=== PATIENT | male | born 1985 | race Caucasian/White ===

== ENCOUNTER 2017-03-13 03:48 | Emergency (ER) | payer OTHER ==
[~2017-03-13] VITALS: Ht 182.9 cm; Wt 86.0 kg
[~2017-03-13 03:48] MED LIST: CYCL-319 PO; HYDR-3498 PO; IBUP800T25 PO
[2017-03-13 03:49] VITALS: Ht 182.9 cm; Wt 86.0 kg
--- NOTE | 2017-03-13 05:07 | ERD ---
ER Documentation Chief Complaint Date/Time DATE: 03/13/17 TIME: 05:03 Chief Complaint rashes on face and both arms HPI This 31-year-old male patient presents to emergency department for complaints of bug bites on his face. Patient reports that he has just moved into a new trailer, he is lethargic, nodding off, and admits to heroin use yesterday. ROS All systems reviewed and are negative except as per history of present illness. Medications Home Meds Active Scripts Mupirocin* (Bactroban*) 2% -22 Gram Oint...g., 1 APPLIC TOP BID for 7 Days, EA Prov:SID,MELODY 03/13/17 Ibuprofen* (Ibuprofen*) 800 Mg Tab, 800 MG PO Q6H Y for PAIN, #30 TAB Prov:ALYSON MARTIN PA-C 03/09/15 Hydrocodone Bit-Acetaminophen* (Hiland*) 5-325 Mg Tab, 1 TAB PO Q4H Y for PAIN, # 20 TAB Prov:ALYSON MARTIN PA-C 03/09/15 Hydrocodone Bit-Acetaminophen* (Hiland*) 5-325 Mg Tab, 1 TAB PO Q6 Y for PAIN, # 10 TAB Prov:CHUCK RUIZ NP 01/11/15 Ibuprofen* (Motrin*) 800 Mg Tab, 800 MG PO Q6H Y for PAIN AND OR ELEVATED TEMP, #30 TAB Prov:CHUCK RUIZ NP 01/11/15 Cyclobenzaprine Hcl* (Cyclobenzaprine Hcl*) 10 Mg Tablet, 5 MG PO TID, #30 TAB Prov:CHUCK RUIZ NP 01/11/15 Allergies Allergies: Coded Allergies: tramadol (Verified Allergy, Unknown, seizure, 01/11/15) PMhx/Soc Medical and Surgical Hx: pt denies Surgical Hx Hx Alcohol Use: No Hx Substance Use: Yes (heroin, last use 03/12/17.) Hx Tobacco Use: Yes Smoking Status: Never smoker Physical Exam Vitals Vital Signs Date Time Temp Pulse Resp B/P Pulse Ox O2 Delivery O2 Flow Rate FiO2 03/13/17 03:49 97.8 80 20 121/78 98 Vitals stable, triage notes reviewed Physical Exam Const: Thin, dirty, nodding off appears to be under the influence of narcotics. Head: Eyes: Patient keeps eyes closed during exam, when opens has difficulty maintaining focus ENT: Neck: Resp: Cardio: Abd: Skin: Skin is dirty, patient has multiple scabs on face, dirt under nails. No obvious infection. Back: Ext: Neur: Awake and alert Psych: Normal Mood and Affect Procedures/MDM This 31-year-old male patient presents to emergency department for treatment of suspected bed bites. Patient admits to heroin addiction, is nodding off in exam room poor historian. Patient has scabs on face, skin is dirty. I have low suspicion of bedbugs. Cellulitis, or Ricardo Iain syndrome. Patient will be discharged with Bactroban applied twice daily 7 days. Patient is stable with no new complaints during ER course, clinically there is no current evidence to suggest meningitis, sepsis, acute abdomen, acute coronary syndromes , pulmonary embolism or any other emergent condition appearing to require further evaluation or hospitalization. I feel the patient is stable for discharge at this time. I have discussed results, examination findings, the treatment plan with the patient and family present prior to discharge. Indications for emergent reevaluation, side effects of medication were also discussed. All questions were answered. Patient verbalizes understanding and agrees with plan of care. Departure Diagnosis: Primary Impression: Rash and other nonspecific skin eruption Additional Impression: Drug addiction Condition: Stable Patient Instructions: Self-Care for Skin Rashes Additional Instructions: Thank you for for coming to [facility] for your care today. Please ask your nurse or provider if you have questions about your care today and do not leave until all your questions have been answered. Please use any medications given as directed and follow-up with your doctor (or the doctor you were referred to) in the next 2-3 days. If you do not have a primary care doctor you may follow up at the [facility] (listed below). You may also use motrin and tylenol as needed for fever and/or pain unless instructed otherwise by your provider or nurse. Indications for more urgent follow-up have been discussed, but you may return to the Emergency Department at ANY time for any worrisome or worsening symptoms. If you have abdominal pain, please know that no test or exam you received is perfect and you should follow up within 8 hours for continued pain. If you had any imaging studies today, such as an X-Ray or CT Scan, these studies will be reviewed later by a radiologist. You will be called if there are important findings that were not identified today, so make sure the contact information you provided at registration is correct. If you received any narcotic pain control medicine today, such as Vicodin, Morphine or Dilaudid, your coordination and judgment may be affected for a number of hours. Please do not drive or operate heavy machinery, and you may want someone to assist you at home. If you were given a prescription for narcotic medication, be aware that it is very addictive- use sparingly and only if necessary. MEAGAN LAU Mar 13, 2017 05:05
[2017-03-13] MEDS ORDERED: MUPI22OI2 TOP (05:08)
== END 2017-03-13 05:52 | disposition home or self-care (01) ==
LOC: FTE 03:48
DX: R21 Rash and other nonspecific skin eruption (principal); Z87.891 Personal history of nicotine dependence
CPT/HCPCS: 99283